=== PATIENT | male | born 1985 | race African-American/Black ===

== ENCOUNTER 2018-08-14 15:19 | Emergency (ER) | payer MEDICAID ==
[~2018-08-14] VITALS: Ht 190.5 cm; Wt 156.0 kg
[2018-08-14] MEDS ORDERED: IBUPROFEN 600MG TABLET PO STA (16:48)
[2018-08-14] MEDS ORDERED: ACETAMINOPHEN 325MG TABLET PO STA (17:25)
[2018-08-14 20:00] VITALS: BP 131/74
== END 2018-08-14 20:00 | disposition home or self-care (01) ==
LOC: ER 15:19
DX: S86.011A Strain of right Achilles tendon, initial encounter (principal); E11.9 Type 2 diabetes mellitus without complications; Z83.3 Family history of diabetes mellitus; W51.XXXA Accidental striking against or bumped into by another person, initial encounter; Y93.67 Activity, basketball; Y92.89 Other specified places as the place of occurrence of the external cause; Y99.8 Other external cause status
CPT/HCPCS: 29505; 73590; 73610; 99283; Z7610